=== PATIENT | male | born 1980 | race Caucasian/White ===

== ENCOUNTER 2025-05-19 14:19 | Emergency (ER) | payer BC ==
[~2025-05-19] VITALS: Ht 175.3 cm; Wt 95.0 kg
[2025-05-19 14:25] VITALS: BP 128/72; PULSE 112; RESP 28; TEMP 99.3; O2SAT 94
[2025-05-19] MEDS: IBUPROFEN 600 MG TABLET PO ONE (15:10)
[2025-05-19] MEDS: ACETAMINOPHEN 500 MG TABLET PO ONE (15:11)
[2025-05-19] MEDS ORDERED: IBUP-1492 PO (15:16)
[2025-05-19] MEDS ORDERED: ACET-3385 PO (15:16)
[2025-05-19] MEDS ORDERED: AZIT-164 PO (15:16)
[2025-05-19] MEDS: AZITHROMYCIN 500 MG TABLET PO ONE (15:37)
== END 2025-05-19 16:06 | disposition home or self-care (01) ==
LOC: EMS 14:19
DX: S46.012A Strain of muscle(s) and tendon(s) of the rotator cuff of left shoulder, initial encounter (principal); J18.9 Pneumonia, unspecified organism; X58.XXXA Exposure to other specified factors, initial encounter; Y93.89 Activity, other specified; Y92.89 Other specified places as the place of occurrence of the external cause; Y99.8 Other external cause status
CPT/HCPCS: 99284; 71046; 73030; J0456